=== PATIENT | female | born 1975 | race Caucasian/White ===

== ENCOUNTER → 2021-06-05 | Outpatient (CLI) | payer BC ==
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
== END ==
LOC: RAD 12:14
PROVIDERS: ATTEND Nurse Practitioner Family
DX: U09.9 Post COVID-19 condition, unspecified (principal)
CPT/HCPCS: 71046

== ENCOUNTER 2021-08-19 08:00 | Emergency (ER) | payer BC, OTHER ==
[~2021-08-19] VITALS: Ht 165.1 cm; Wt 72.7 kg
[2021-08-19] MEDS ORDERED: diazePAM 5 MG TABLET. PO ONE (10:00)
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
[2021-08-19] MEDS ORDERED: CYCL5TAB PO (10:43)
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
[2021-08-19 10:49] VITALS: BP 142/71
== END 2021-08-19 10:49 | disposition home or self-care (01) ==
LOC: ER 08:00
DX: M54.2 Cervicalgia (principal); V49.49XA Driver injured in collision with other motor vehicles in traffic accident, initial encounter; Y93.I9 Activity, other involving external motion; Y92.89 Other specified places as the place of occurrence of the external cause; Y99.8 Other external cause status
CPT/HCPCS: 70450; 72125; 99284